=== PATIENT | female | born 1970 | race African-American/Black ===

== ENCOUNTER 2021-03-10 12:11 | Inpatient (IN) | payer SELFPAY ==
[~2021-03-10] VITALS: Ht 177.8 cm; Wt 73.9 kg
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
[2021-03-10 12:42] LABS: BASOPHILS % (AUTO) 0.3 % (0.0-2.0); EOSINOPHILS % (AUTO) 0.3 % (0.0-6.0); HEMATOCRIT 38 % (33-45); HEMOGLOBIN 12.8 g/dL (11.5-14.8); LYMPHOCYTES # (AUTO) 0.8 K/uL (0.8-4.8); LYMPHOCYTES % (AUTO) 20.9 % (20.0-44.0); MEAN CORPUSCULAR HGB CONC 34 g/dl (31.0-36.0); MEAN CORPUSCULAR VOLUME 90 fL (82-100); MONOCYTES # (AUTO) 0.2 K/uL (0.1-1.30); MONOCYTES % (AUTO) 6.3 % (2.0-12.0); NEUTROPHILS # (AUTO) 2.8 K/uL (1.8-8.9); NEUTROPHILS % (AUTO) 72.2 % (43.0-81.0); PLATELET COUNT (AUTO) 229 K/uL (150-450); RED BLOOD CELL COUNT(AUTO) 4.18 MIL/uL (4.0-5.2); WHITE BLOOD COUNT (AUTO) 3.8 K/uL (4.3-11.0)
[2021-03-10 12:53] LABS: BILIRUBIN,URINE NEGATIVE (NEGATIVE); COLOR,URINE YELLOW (YELLOW); LEUKOCYTE ESTERASE ,URINE NEGATIVE (NEGATIVE); NITRITE, URINE NEGATIVE (NEGATIVE); PROTEIN,URINE TRACE mg/dl (NEGATIVE); UGLUCOSE NEGATIVE (NEGATIVE); UROBILINOGEN,URINE 0.2 EU/dL (0.2)
[2021-03-10] MEDS ORDERED: IOHEXOL-300 100 ML VIAL IV ONE (12:59)
[2021-03-10] MEDS ORDERED: IV NS 0.9% 250 ML IV ONE (12:59)
[2021-03-10] MEDS ORDERED: CT SWABBABLE VALVE TRANS SET 1 EA INFUS.SET MC ONE (13:00)
[2021-03-10 13:01] LABS: ALANINE AMINOTRANSFERASE 13 U/L (12-78); ALBUMIN 3.9 g/dL (3.4-5.0); ALKALINE PHOSPHATASE 64 U/L (46-116); ASPARTATE AMINOTRANSFERASE 18 U/L (15-37); BILIRUBIN,DIRECT 0.2 mg/dL (0.0-0.2); BILIRUBIN,TOTAL 0.4 mg/dL (0.2-1.0); CALCIUM, SERUM 8.4 mg/dL (8.5-10.1); CARBON DIOXIDE 23 mmol/L (21-32); CHLORIDE 103 mmol/L (98-107); CREATININE 1.1 mg/dL (0.6-1.3); GLUCOSE 116 mg/dL (74-106); SODIUM SERUM 138 mmol/L (136-145); TOTAL PROTEIN, SERUM 7.4 g/dL (6.4-8.2); UREA NITROGEN, BLOOD 8 mg/dL (7-18)
[2021-03-10 13:02] LABS: ACETAMINOPHEN 0 ug/ml (10-30); ALCOHOL, BLOOD < 3 mg/dL (0-0); POTASSIUM 2.6 mmol/L (3.5-5.1)
[2021-03-10 13:04] LABS: BACTERIA,URINE Few /HPF (None Seen); MUCUS,URINE Moderate /LPF (None Seen); SQUAMOUS EPITHELIAL CELL,UR Few /HPF (None Seen)
[2021-03-10] MEDS ORDERED: POTASSIUM CL. PREMIX PERIPHER. 200 ML ONE (14:04)
[2021-03-10] MEDS: POTASSIUM CL. PREMIX PERIPHER. 50 ML IV SCH ×4 (14:18→18:22)
[2021-03-10] MEDS ORDERED: Z GUARD REMEDY 2 OZ OINT TP PRN (14:30)
[2021-03-10] MEDS ORDERED: MAG HYDROX/AL HYDROX/SIMETH 30 ML UDC PO PRN (14:30)
[2021-03-10] MEDS ORDERED: ZOLPIDEM TARTRATE 5 MG TABLET PO PRN (14:30)
[2021-03-10] MEDS ORDERED: IV NS 0.9% 1,000 ML IV PRN (14:30)
[2021-03-10] MEDS ORDERED: MAGNESIUM HYDROXIDE 30 ML UDC PO PRN (14:30)
[2021-03-10] MEDS ORDERED: LORAZEPAM INJ 2 MG/ML VIAL IV PRN (14:30)
[2021-03-10] MEDS ORDERED: ONDANSETRON HCL/PF 4 MG/2 ML VIAL IVP PRN (14:30)
--- NOTE | 2021-03-10 16:23 | NUR ---
REPORT GIVEN TO QUYNH DENNEY
--- NOTE | 2021-03-10 16:32 | NUR ---
PATIENT AROUSABLE TO NAME, BREATHING EVEN AND UNLABORED, NO SOB NOTED. PATIENT TRANSFERRED TO ROOM 311, IN STABLE CONDITION.
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
--- NOTE | 2021-03-10 18:35 | NUR ---
RN CLOSING NOTE- PT TAKEN TO GET MRI, RESULTS PENDING . LAST BAG KCL INFUSING TO 18G LFT AC. PT CONFUSED, SLEEPY AND WITHDRAWN. MONITOR IN PLACE, NEEDS ATTENDED. VS- BP- 134/88, HR- 93, RR- 18, T- 97.9, SATURATION 99% RA
--- NOTE | 2021-03-10 19:32 | NUR ---
MS RN NOTES PT RECEIVED IN BED AWAKE A/0 X 3 PT APPEARS WITHDRAWN, FOLLOWS DIRECTION THOUGH SEEMS SOMNOLENT AND LETHARGIC. PT HAS IV ACCESS ON LEFT HAND 20G AND LAC 18G BOTH PATENT AND FLUSHING WELL. PT HAD MRI DONE THIS EVENING RESULTS STILL PENDING. SAFETY MEASURES FOLLOWED AT ALL TIMES BILATERAL SIDE RAILS UP FOR SAFETY HOB ELEVATED. CALL LIGHT WITHIN REACH. BED ALARM ON AT THIS TIME. WILL CONTINUE TO MONITOR.
[2021-03-10 20:00] VITALS: BP 127/81
[2021-03-11] VITALS: BP 114/89
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
--- NOTE | 2021-03-11 05:21 | NUR ---
MS RN NOTES PT CAME OUT TO THE NURSING STATION CHARGE NURSE ASKED PT IF SHE NEEDED SOMETHING PT STATED " SH! SH !! THEY ARE LISTENING WE CANT TALK HERE LETS GO TO MY ROOM" CHARGE NURSE REASSURED PT NO ONE WAS LISTENING AND THAT SHE IS SAFE HERE PT STILL INSISTED THAT " THEY WERE SPYING ON HER" CHANNEL INSTALLER [facility] DOCTOR NOTIFIED. DOCTOR ORDERED 1:1 SITTER AND PSYCH CONSULT WITH DR KRAFT IN THE MORNING. WILL CONTINUE TO MONITOR.
[2021-03-11 06:38] LABS: BASOPHILS % (AUTO) 0.2 % (0.0-2.0); HEMATOCRIT 40 % (33-45); HEMOGLOBIN 13.7 g/dL (11.5-14.8); LYMPHOCYTES # (AUTO) 1.1 K/uL (0.8-4.8); MEAN CORPUSCULAR HGB CONC 34 g/dl (31.0-36.0); MEAN CORPUSCULAR VOLUME 90 fL (82-100); MONOCYTES # (AUTO) 0.7 K/uL (0.1-1.30); MONOCYTES % (AUTO) 7.2 % (2.0-12.0); NEUTROPHILS # (AUTO) 8.5 K/uL (1.8-8.9); NEUTROPHILS % (AUTO) 81.6 % (43.0-81.0); PLATELET COUNT (AUTO) 265 K/uL (150-450); RED BLOOD CELL COUNT(AUTO) 4.47 MIL/uL (4.0-5.2); WHITE BLOOD COUNT (AUTO) 10.4 K/uL (4.3-11.0)
[2021-03-11] MEDS: ACETAMINOPHEN 325 MG TABLET PO PRN ×2 (06:50→14:55)
--- NOTE | 2021-03-11 06:53 | NUR ---
MS RN NOTES PT IN BED AWAKE A/0 X 3 PT APPEARS WITHDRAWN, FOLLOWS DIRECTION THOUGH AT TIMES CONFUSED AND LETHARGIC. PT HAS IV ACCESS ON LEFT HAND 20G AND LAC 18G BOTH PATENT AND FLUSHING WELL. PT REPORTS GENERALIZED PAIN TYLENOL. SAFETY MEASURES FOLLOWED AT ALL TIMES BILATERAL SIDE RAILS UP FOR SAFETY HOB ELEVATED. CALL LIGHT WITHIN REACH. WILL ENDORSE CARE TO DAY SHIFT NURSE.
[2021-03-11 07:34] LABS: CREATININE 1.4 mg/dL (0.6-1.3); MAGNESIUM 2.1 mg/dL (1.8-2.4); PHOSPHORUS 3.4 mg/dL (2.5-4.9)
[2021-03-11 07:42] LABS: THYROID STIMULATING HORMONE 0.67 uIU/mL (0.358-3.74)
[2021-03-11 08:00] VITALS: BP 126/75
--- NOTE | 2021-03-11 08:10 | NUR ---
rush/kirsten benito: visit seen and examined by dr. alexander at this time. Addendum: 03/11/21 at 1810 by RUTH BUNN LVN pt refusing iv fluids, dr. alexander made aware.
--- NOTE | 2021-03-11 08:13 | NUR ---
m/s therapist asst: neuro consult seen and examined by dr. coffey at this time.
[2021-03-11] MEDS ORDERED: POTASSIUM CHLORIDE 20 MEQ TAB.PRT.SR PO ONE ×2 (08:30→13:00)
[2021-03-11] MEDS: PANTOPRAZOLE 40 MG TABLET.DR PO SCH (09:18)
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
--- NOTE | 2021-03-11 12:00 | NUR ---
m/s box machine operator: notes lunch served. sitter remains at bedside. pt still sleepy, but arousable. in no apparent distress noted.
--- NOTE | 2021-03-11 13:30 | NUR ---
m/s computer numerical control machinist: psych consult seen by dr. phillip at this time. no new order. sitter remains at bedside. will continue to monitor.
--- NOTE | 2021-03-11 14:30 | NUR ---
m/s patient accounts manager: notes shelia (god daughter) here visiting. dr. alexander spoke to god daughter and updated plan of care.
[2021-03-11 16:00] VITALS: BP 116/78
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
--- NOTE | 2021-03-11 19:10 | NUR ---
m/s milk and cream grader: notes report given to enid (yisel) for continuity of care.
--- NOTE | 2021-03-11 20:00 | NUR ---
MS RN OPENING NOTE RECEIVED PT IN BED WITH EYES CLOSED, AROUSABLE TO STIMULATION. A/O X3, FORGETFUL AT TIMES. PT IS STABLE ON ROOM AIR. NO SOB OR S/S OF RESPIRATORY DISTRESS NOTED. PT HAS NO C/O PAIN OR DISCOMFORT AT THIS TIME. IV ACCESS IN RIGHT HAND #20 AND LEFT AC #18, INTACT AND PATENT. 1:1 SITTER AT BEDSIDE FOR HX OF PARANOIA AND HALLUCINATIONS. SAFETY PRECAUTIONS MAINTAINED. BED IN LOWEST LOCKED POSITION, HOB ELEVATED, SIDE RAILS UP X2. CALL LIGHT AND TABLE WITHIN REACH. WILL CONTINUE WITH PLAN OF CARE.
--- NOTE | 2021-03-11 21:05 | NUR ---
DR. KRAFT CALLED AND WAS UPDATED ON PT'S CONDITION AND PLAN. SHE STATED THAT SHE WILL PUT IN AN ORDER FOR SEROQUEL 25MG PO HS PRN FOR PSYCHOSIS/AGITATION.
[2021-03-11] MEDS ORDERED: QUETIAPINE FUMARATE 25 MG TABLET PO PRN (21:30)
--- NOTE | 2021-03-12 06:10 | NUR ---
MS RN CLOSING NOTE PT IN BED WITH EYES CLOSED, AROUSABLE TO STIMULATION. A/O X3, FORGETFUL AT TIMES. PT IS STABLE ON ROOM AIR. NO SOB OR S/S OF RESPIRATORY DISTRESS NOTED. PT HAS NO C/O PAIN OR DISCOMFORT AT THIS TIME. IV ACCESS IS INTACT, PATENT, AND FLUSHING WELL. 1:1 SITTER AT BEDSIDE FOR HX OF PARANOIA AND HALLUCINATIONS. ALL NEEDS HAVE BEEN MET. SAFETY PRECAUTIONS MAINTAINED AT ALL TIMES. BED IN LOWEST LOCKED POSITION, HOB ELEVATED, SIDE RAILS UP X2. CALL LIGHT AND TABLE WITHIN REACH. WILL ENDORSE TO ONCOMING NURSE FOR LISSET.
[2021-03-12 06:29] LABS: CREATININE 1.7 mg/dL (0.6-1.3); POTASSIUM 4.5 mmol/L (3.5-5.1)
[2021-03-12] MEDS: PANTOPRAZOLE 40 MG TABLET.DR PO SCH (07:48)
[2021-03-12 08:00] VITALS: BP 116/70
--- NOTE | 2021-03-12 08:15 | NUR ---
RN OPENING NOTE- RECEIVED PT IN BED WITH EYES CLOSED, A/O X3, CONFUSION AT TIMES. PT RETAINING UA, BLADDER SCAN SHOWS 600+ RETENTION. DR ORDERED INIGUEZ CATHETER INSERTION. PT IS STABLE ON ROOM AIR. NO SOB OR S/S OF RESPIRATORY DISTRESS NOTED. PT HAS NO C/O PAIN OR DISCOMFORT AT THIS TIME. IV ACCESS IN RIGHT HAND #20 AND LEFT AC #18, INTACT AND PATENT. 1:1 SITTER AT BEDSIDE FOR HX OF PARANOIA AND HALLUCINATIONS. SAFETY PRECAUTIONS MAINTAINED. BED IN LOWEST LOCKED POSITION, HOB ELEVATED, SIDE RAILS UP X2. CALL LIGHT AND TABLE WITHIN REACH. WILL CONTINUE WITH PLAN OF CARE.
--- NOTE | 2021-03-12 08:20 | NUR ---
RN NOTE- FEMALE RN INSERTED INIGUEZ CATH 16F UTILIZING STERILE TECHNIQUE. . TOLERATED WELL. CLEAR YELLOW UA NOTED OUTPUT.
[2021-03-12] MEDS: TAMSULOSIN 0.4 MG CAP.SR.24H PO SCH ×2 (09:25→21:04)
--- NOTE | 2021-03-12 12:15 | NUR ---
RN NOTE- PT WANTED VEGAN MEALS. ORDER PLACED . CALLED KITCHEN / CONFIRMED W STAFF
[2021-03-12 16:00] VITALS: BP 125/81
--- NOTE | 2021-03-12 18:21 | NUR ---
RN CLOSING NOTE- PT IS IN BED W FAMILY AT BEDSIDE. SHE'S ALERT ORIENTED TO PERSON PLACE THOUGH SOMETIMES SHE'S CONFUSED. PT IS A BIT LETHARGIC AND SLOW TO RESPOND AT TIMES. SMILES THOUGH AND IS AFFECT APPROPRIATE. MED COMPLIANT, DR LESTER SAID HE MAY DO EEG, CT AND MRI UNREMARKABLE. PREG TEST IN ORDERS AND PENDING. INIGUEZ CATHETER TO GRAVITY W CLEAR YELLOW UA DRAINING. SIDE RAILS UP X 2, BED LOCKED, NEEDS MET,. MONITOR FOR SAFETY. 1:1 SITTER
--- NOTE | 2021-03-12 19:30 | NUR ---
MS RN OPENING NOTE RECEIVED PT IN BED WITH EYES CLOSED, AROUSABLE TO STIMULATION. A/O X3, FORGETFUL AT TIMES. PT IS STABLE ON ROOM AIR. NO SOB OR S/S OF RESPIRATORY DISTRESS NOTED. PT HAS NO C/O PAIN OR DISCOMFORT AT THIS TIME. IV ACCESS IN RIGHT HAND #20 AND LEFT AC #18, INTACT AND PATENT. 1:1 SITTER AT BEDSIDE FOR HX OF PARANOIA AND HALLUCINATIONS. INIGUEZ CATH IN PLACE DRAINING CLEAR YELLOW URINE. SAFETY PRECAUTIONS MAINTAINED. BED IN LOWEST LOCKED POSITION, HOB ELEVATED, SIDE RAILS UP X2. CALL LIGHT AND TABLE WITHIN REACH. WILL CONTINUE WITH PLAN OF CARE.
[2021-03-12 20:00] VITALS: BP 120/83
--- NOTE | 2021-03-13 00:30 | NUR ---
RN NOTE: REPORT RECEIVED, ASSESSMENT COMPLETE. RECEIVED SLEEPING INTERMITTENTLY IN BED. NO ACUTE DISTRESS NOTED. PT A/O X3, ABLE TO MAKE NEEDS KNOWN. STABLE ON ROOM AIR. PT DENIES PAIN AND/OR DISCOMFORT AT PRESENT TIME. IV ACCESS IN RIGHT HAND #20 AND LEFT AC #18, INTACT AND PATENT. REFUSING IV INFUSION. PER PREVIOUS RNMD AWARE. 1:1 SITTER AT BEDSIDE FOR HX OF PARANOIA AND HALLUCINATIONS. DENIES HALLUCINATIONS AT PRESENT TIME. INIGUEZ CATH IN PLACE, PATENT AND DRAINING CLEAR YELLOW URINE. SAFETY PRECAUTIONS MAINTAINED. BED IN LOW AND LOCKED POSITION, SIDE RAILS UP X2. CALL LIGHT AND TABLE WITHIN REACH. WILL CONTINUE TO MONITOR.
--- NOTE | 2021-03-13 00:31 | NUR ---
REPORT GIVEN TO ОЛЕГ ARAYA FOR LISSET.
[2021-03-13 06:31] LABS: CALCIUM, SERUM 8.8 mg/dL (8.5-10.1); CREATININE 2.7 mg/dL (0.6-1.3); POTASSIUM 3.8 mmol/L (3.5-5.1)
--- NOTE | 2021-03-13 07:30 | NUR ---
RN-NOTES RECEIVED PATIENT LYING IN BED AWAKE,ALERT X3,FORGETFUL AT TIMES ,NO ACUTE DISTRESS NOTED. ABLE TO MAKE NEEDS KNOWN. NEEDS MINIMAL ASSIST WITH ADL'S AND AMBULATION. WILL CONT. MONITORING FOR SAFETY.
[2021-03-13 08:00] VITALS: BP 120/77
[2021-03-13] MEDS: PANTOPRAZOLE 40 MG TABLET.DR PO SCH (08:25)
--- NOTE | 2021-03-13 08:31 | NUR ---
RN-NOTES RECEIVED PATIENT LYING IN BED AWAKE,ALERT X3 ,NO ACUTE DISTRESS NOTED.
[2021-03-13] MEDS: ENSURE ENLIVE 237 ML LIQUID (VANILLA) PO SCH ×2 (12:38→17:00)
[2021-03-13] MEDS: MORPHINE SULFATE INJ 2 MG/ML DISP.SYRIN IV PRN ×2 (12:50→22:02)
--- NOTE | 2021-03-13 14:52 | NUR ---
DMV Reexamination: KATELYN placed DMV Reexamination form in pt.'s chart for Maximiliano Bhatt DNP to sign. SW notified DNP. KATELYN will mail to DMV office after it is signed.
[2021-03-13 16:00] VITALS: BP 121/70
[2021-03-13] MEDS: IV NS 0.9% 1,000 ML IV PRN (16:04)
--- NOTE | 2021-03-13 18:37 | NUR ---
RN-CLOSED NOTES PATIENT LYING IN BED AWAKE,ALERT ,NO ACUTE DISTRESS NOTED. PATIENT ON IV FLUID OF NS 0.9% @ 100ML/HR,INFUSING WELL WELL TOLERATED. IV SITE ON R HAND AND LAC, NO S/S OF INFILTRATION NOTED ON THE IV SITE. ALL NEEDS ATTENDED AND ANTICIPATED. PATIENT ON 1:1 MONITORING FOR SAFETY.WILL ENDORSE TO INCOMING NURSED FOR CONTINUITY OF CARE AND MONITORING.
--- NOTE | 2021-03-13 19:30 | NUR ---
MS RN NOTES RECEIVED LYING COMFORTABLY ON BED,A/O X3,WITH VISITOR AT BEDSIDE,SALINE LOCK RIGHT HAND INTACT AND PATENT,DENIES DISCOMFORTS AT THE MOMENT.CALL LIGHT IN REACH,NEEDS ANTICIPATED.
[2021-03-13 20:00] VITALS: BP 120/70
[2021-03-13] MEDS: TAMSULOSIN 0.4 MG CAP.SR.24H PO SCH (21:09)
--- NOTE | 2021-03-13 22:02 | NUR ---
MS RN NOTES PAIN MANAGEMENT C/O LEFT BREASTFOLD PAIN 8/10 ON PAIN SCALE,MORPHINE 2MG IV GIVEN ORDERED FOR SEVERE PAIN
[2021-03-14] MEDS: IV NS 0.9% 1,000 ML IV PRN (05:11)
--- NOTE | 2021-03-14 06:23 | NUR ---
MS RN NOTES PAIN MANAGEMENT EFFECTIVE,SLEPT WELL,IVF INFUSING WELL ON RIGHT HAND,STILL WITH EPISODE OF FORGETFULNESS.NO FALL,NO INJURY,CALL LIGHT IN REACH,NEEDS ATTENDED.WILL ENDORSE TO DAY NURSE FOR LISSET.
[2021-03-14 06:50] LABS: CALCIUM, SERUM 8.7 mg/dL (8.5-10.1); CREATININE 1.8 mg/dL (0.6-1.3); POTASSIUM 3.8 mmol/L (3.5-5.1)
--- NOTE | 2021-03-14 07:56 | NUR ---
RN Opening Notes: Received pt. awake in bed, responsive to staffs. Pt. with ongoing IV of NS @ 100 ml/hr and with verduzco cath attached to urobag. No sign of distress noted and will continue to monitor.
[2021-03-14] MEDS: PANTOPRAZOLE 40 MG TABLET.DR PO SCH (08:14)
[2021-03-14] MEDS: ENSURE ENLIVE 237 ML LIQUID (VANILLA) PO SCH ×2 (08:15→17:00)
[2021-03-14 08:43] VITALS: BP_SYST 103; BP_DIAS 70; BP_DIAS 72
--- NOTE | 2021-03-14 11:19 | NUR ---
Rhodes Cath discontinues as ordered. Pt. tolerated well,
--- NOTE | 2021-03-14 12:50 | NUR ---
Sales And Distribution Clerk note: Per home health care case manager, KATELYN Sharma will fax clinicals to [facility], , per family request for psychiatric admission.
--- NOTE | 2021-03-14 14:15 | NUR ---
Maximiliano AIRCRAFT MAINTENANCE INSTRUCTOR with an order to D/C pt. to home. Pt. without distress. Belongings ready and discharge papers ready.
--- NOTE | 2021-03-14 15:30 | NUR ---
DMV Re-Examination: This SW followed up with DMV Re-Examination form. Maximiliano Bhatt DNP signed form and SW mailed form to DM office ([address] [facility] [address], [place] [address]).
--- NOTE | 2021-03-14 15:51 | NUR ---
Health Care / Medical Job Titles note: SW was notified by Levar ([phone]) at [facility] that has been accepted to [facility]. patient care manager, Edith to /u with transportation.
[2021-03-14 17:15] VITALS: BP 110/72
--- NOTE | 2021-03-14 18:45 | NUR ---
Pt. left the unit via ambulance and transported via a gurney with belongings. Pt. will go [facility] [place]. Pt. left the unit without distress.
[2021-03-18 11:07] LABS: RENIN, PLASMA 1.017 ng/mL/hr (0.167-5.380)
== END 2021-03-14 18:46 | disposition short-term general hospital (02) | DRG 917 ==
LOC: ER 12:14 → TELE 16:17 → MED 16:24
PROVIDERS: ADMIT Nurse Practitioner Acute Care; ATTEND Nurse Practitioner Acute Care
DX: T40.7X1A Poisoning by cannabis (derivatives), accidental (unintentional), initial encounter (principal); G92 Toxic encephalopathy; N17.0 Acute kidney failure with tubular necrosis; F05 Delirium due to known physiological condition; E87.6 Hypokalemia; V47.5XXA Car driver injured in collision with fixed or stationary object in traffic accident, initial encounter; Y92.410 Unspecified street and highway as the place of occurrence of the external cause; Z20.822 Contact with and (suspected) exposure to COVID-19; F32.9 Major depressive disorder, single episode, unspecified; F29 Unspecified psychosis not due to a substance or known physiological condition; D25.9 Leiomyoma of uterus, unspecified; F41.9 Anxiety disorder, unspecified; F17.200 Nicotine dependence, unspecified, uncomplicated; M46.02 Spinal enthesopathy, cervical region
CPT/HCPCS: 36415; 70450-TC; 70551-TC; 71045-TC; 71260-TC; 72125-TC; 80048-TC; 80076-TC; 81001; 82088; 83735-TC; 84100-TC; 84244; 84443-TC; 85025-TC; 87081-TC; 95819-TC; 97116-TC; 97530-TC; A6403; C9803; G0378; G0480; J2270; J3480; J7030; J7050; Q9967